=== PATIENT | male | born 1935 | race Asian ===

== ENCOUNTER 2017-04-19 18:08 | Emergency (ER) | payer MEDICARE, OTHER ==
[2017-04-19 18:27] VITALS: BP 143/82
--- NOTE | 2017-04-19 19:09 | UC ---
Minor Trauma HPI - HPI Summary HPI Summary: Pt tripped over concrete barrier in parking garage, fell onto L side. Has abrasions to bilat palms, L face; also has pain in L shoulder with palpation and movement. No prior surgery to L shoulder. Denies hitting head, neck pain, dental/jaw pain. - History of Current Complaint Hx Obtained From: Patient Onset/Duration: Sudden Onset Onset Of Pain: Immediate Severity Initially: Moderate Severity Currently: Mild Mechanism Of Injury: Fall From A Standing Position Aggravating Factor(s): Movement Alleviating Factor(s): Nothing <Monet Alcocer - Last Filed: 04/19/17 18:58> <Leydi Mckinley - Last Filed: 04/19/17 21:28> - History of Current Complaint Chief Complaint: UCTrauma Stated Complaint: FELL-HAND AND SHOULDER Time Seen by Provider: 04/19/17 18:51 - Allergies/Home Medications Allergies/Adverse Reactions: Allergies Allergy/AdvReac Type Severity Reaction Status Date / Time No Known Allergies Allergy Verified 04/19/17 18:27 PMH/Surg Hx/FS Hx/Imm Hx Other GI/ History: hx hepatitis - Surgical History Surgical History: Yes Surgery Procedure, Year, and Place: Eye Surgery - Family History Known Family History: Positive: None - Social History Occupation: Retired Lives: With Family Alcohol Use: None Substance Use Type: None Smoking Status (MU): Never Smoked Tobacco - Immunization History Most Recent Tetanus Shot: not sure Vaccination Up to Date: Yes <Monet Alcocer - Last Filed: 04/19/17 18:58> Review of Systems Constitutional: Negative Skin: Other - abrasions Eyes: Negative ENT: Negative Respiratory: Negative Cardiovascular: Negative Gastrointestinal: Negative Genitourinary: Negative Motor: Negative Neurovascular: Negative Musculoskeletal: Arthralgia - L shoulder Neurological: Negative Psychological: Negative Is Patient Immunocompromised?: No All Other Systems Reviewed And Are Negative: Yes <Monet Alcocer - Last Filed: 04/19/17 18:58> Physical Exam Triage Information Reviewed: Yes Appearance: Well-Appearing, Well-Nourished, Pain Distress - with L shoulder movement Vital Signs: Initial Vital Signs Temp 97.9 F 04/19/17 18:23 Pulse 83 04/19/17 18:23 Resp 18 04/19/17 18:23 BP 143/82 04/19/17 18:23 Pulse Ox 98 04/19/17 18:23 Vital Signs Reviewed: Yes Eye Exam: Normal Eyes: Positive: Conjunctiva Clear ENT Exam: Normal ENT: Positive: Normal ENT inspection, Hearing grossly normal, Pharynx normal, TMs normal Dental Exam: Normal Dental: Negative: Percussion Tenderness @, Gross Decay/Caries @, Dental Fracture @ Neck exam: Normal, Other - No bony tenderness Neck: Positive: Supple, Nontender, No Lymphadenopathy Respiratory Exam: Normal Respiratory: Positive: Chest non-tender, Lungs clear, Normal breath sounds, No respiratory distress, No accessory muscle use Cardiovascular Exam: Normal Cardiovascular: Positive: RRR, No Murmur Musculoskeletal: Positive: ROM Limited @ - L shoulder, full passive ROM, restricted AROM Neurological Exam: Normal Neurological: Positive: Alert Psychological Exam: Normal Skin Exam: Other - abrasions to palms, abrasion to face <Monet Alcocer - Last Filed: 04/19/17 18:58> Vital Signs: Initial Vital Signs Temp 97.9 F 04/19/17 18:23 Pulse 83 04/19/17 18:23 Resp 18 04/19/17 18:23 BP 143/82 04/19/17 18:23 Pulse Ox 98 04/19/17 18:23 <Leydi Mckinley - Last Filed: 04/19/17 21:28> Diagnostics - Radiology No standard instances Xray Interpretation: No Acute Changes Radiology Interpretation Completed By: Radiologist <Monet Alcocer - Last Filed: 04/19/17 18:58> Minor Trauma Course/Dx - Differential Dx/Diagnosis Provider Diagnoses: Multiple abrasions. L shoulder contusion. L shoulder injury <Monet Alcocer - Last Filed: 04/19/17 18:58> Discharge <Monet Alcocer - Last Filed: 04/19/17 18:58> <Leydi Mckinley - Last Filed: 04/19/17 21:28> - Discharge Plan Condition: Stable Disposition: HOME Patient Education Materials: Shoulder Sprain (ED), Contusion in Adults (ED) Referrals: Eddie Elizabeth MD [Primary Care Provider] - 1 Week Additional Instructions: Use vaseline or antibiotic ointment on your face and hands for 2-3 days; you can stop dressing your hand wounds when they are no longer tender to the touch. Most shoulder injuries are very painful at first, and sometimes the only way we know whether there is a more serious injury is to recheck you after pain has had a chance to come down. Wear the sling only until you are comfortable to go without it, and plan to see your primary care provider in about a week to see if you need follow-up x-rays or an orthopedist. You can use ice and acetaminophen or ibuprofen as needed for pain, and try to gently get the arm through a full range of motion 3-4 times per day. Attestation Statement User Type: Provider - I was available for consult. This patient was seen by the [facility]. The patient was not presented to, seen by, or examined by me. -Urmila <Leydi Mckinley - Last Filed: 04/19/17 21:28>
--- NOTE | 2017-04-19 19:51 | RAD ---
Indication: Left shoulder pain. 4 views of left shoulder demonstrates no fracture. No other bone or joint abnormality is identified. IMPRESSION: No fracture of the left shoulder is noted.
== END 2017-04-19 20:08 | disposition home or self-care (01) ==
LOC: UCEAST 18:08
DX: T14.8XXA Other injury of unspecified body region, initial encounter (principal); S60.222A Contusion of left hand, initial encounter; S60.221A Contusion of right hand, initial encounter; S49.92XA Unspecified injury of left shoulder and upper arm, initial encounter; W18.30XA Fall on same level, unspecified, initial encounter
CPT/HCPCS: 99213; G0463

== ENCOUNTER 2018-02-07 15:35 | Emergency (ER) | payer MEDICARE, OTHER ==
[2018-02-07 16:04] VITALS: BP 111/73
--- NOTE | 2018-02-07 16:38 | RAD ---
Indication: Proximal humerus RIGHT shoulder pain post fall 2 days ago. Comparison: No relevant prior exams available on the [facility] for comparison. Technique: Internal rotation AP, external rotation Grashey, scapular Y, axillary views RIGHT shoulder REPORT AND IMPRESSION: #. Normal acromioclavicular and glenohumeral joint alignment. #. Negative for fracture. #. Small burden of calcific tendinopathy at the level of the supraspinatus tendon insertion at the greater tuberosity. #. Unremarkable soft tissue contours.
--- NOTE | 2018-02-07 16:51 | UC ---
Shoulder Pain HPI - HPI Summary HPI Summary: 82 y/o male presents to the urgent care c/o RT shoulder pain s/p falling while going down the stairs in the [facility] on 02/05/2018. Pt reports he slip on the last step. He also fractured one of his frontal teeth. He just came from the dentist who fixed his tooth. Pain w/ movement is sharp 6/10 and 0/0 at rest. It is difficult for him to raise his arm. Pt denies numbness and tingling sensation , fever, SOB, calf pain, chest pain, abdominal pain,N/V/D. He ahs taking Advil 2 tabs PO to alleviate symptoms. - History of Current Complaint Chief Complaint: UCUpperExtremity Stated Complaint: SHOULDER INJURY Time Seen by Provider: 02/07/18 16:19 Hx Obtained From: Patient Onset/Duration: Sudden Onset, Lasting Days - 2 days, Still Present, Worse Since - today Timing: Constant Severity Initially: Moderate Severity Currently: Moderate Location Of Pain: Is Discrete @ - RT shoulder unable to raise arm Pain Intensity: 6 - movement and 0/10 at rest Pain Scale Used: 0-10 Numeric Character: Dull Aggravating Factor(s): Movement, Lifting, Abduction Alleviating Factor(s): Rest, Ice, OTC Meds - Advil 2 tabs PO Associated Signs And Symptoms: Positive: Negative. Negative: Redness, Bruising , Numbness/Tingling Related History: Dominant Hand Right - Risk Factors Non-Orthopedic Risk Factor: Negative DVT Risk Factors: Negative Septic Arthritis Risk Factor: Negative - Allergies/Home Medications Allergies/Adverse Reactions: Allergies Allergy/AdvReac Type Severity Reaction Status Date / Time No Known Allergies Allergy Verified 02/07/18 16:05 Home Medications: Home Medications metFORMIN* [Glucophage 500 MG TAB *] 1 tab PO BID 02/07/18 [History Confirmed ] PMH/Surg Hx/FS Hx/Imm Hx Previously Healthy: Yes Endocrine History: Diabetes GI/ History: Gastroesophageal Reflux Psychological History: Depression - Surgical History Surgical History: Yes Surgery Procedure, Year, and Place: Eye Surgery - Family History Known Family History: Positive: Diabetes - Social History Occupation: Retired Lives: With Family Alcohol Use: None Substance Use Type: None Smoking Status (MU): Never Smoked Tobacco - Immunization History Most Recent Tetanus Shot: not sure Vaccination Up to Date: Yes Review of Systems Constitutional: Negative Skin: Negative Eyes: Negative ENT: Negative Respiratory: Negative Cardiovascular: Negative Gastrointestinal: Negative Genitourinary: Negative Motor: Negative Neurovascular: Negative Musculoskeletal: Decreased ROM - RT shoulder, Other: - RT shoulder pain s/p fall Neurological: Negative Psychological: Negative Is Patient Immunocompromised?: No All Other Systems Reviewed And Are Negative: Yes Physical Exam - Summary Physical Exam Summary: Vital Signs Reviewed: Yes General: well developed, well nourished old male sitting in the examining table w/o any apparent distress, Eyes: Positive: Conjunctiva Clear - PERRLA, EOMI, fundi grossly normal ENT: Positive: Normal ENT inspection, Hearing grossly normal, Pharynx normal, TMs normal Neck: Positive: Supple, Nontender, No Lymphadenopathy Respiratory: Positive: Chest non-tender, Lungs clear, Normal breath sounds, No respiratory distress Cardiovascular: Positive: RRR, No Murmur, Pulses Normal, Brisk Capillary Refill Abdomen Description: Positive: Nontender, No Organomegaly, Soft. Negative: CVA Tenderness (R), CVA Tenderness (L) Bowel Sounds: Positive: Present Musculoskeletal: Positive: Strength Intact, RT shoulder: The R shoulder is without obvious asymmetry or deformity when compared to the L shoulder. No surface trauma, ecchymosis, crepitus. No bony deformity or prominence of humeral head. No erythema, warmth. No tender to palpation over the clavicle, scapula. Mild tenderness over Acromioclavicular joint and humeral head with mild swelling, NT to palpation of the bicipital groove . NT to palpation of the muscles of the sternocleidomastoid, pectoralis, tenderness over biceps/triceps, deltoid, trapezius, . Limited ROM due to pain. "empty can and drop arm test unable to perform due to pain. No axillary tenderness or lymphadenopathy. Normal sensation over the deltoid and fingers. Distal motor and neurovascular status is intact. Neurological Exam: Normal Psychological Exam: Normal Skin Exam: Normal Triage Information Reviewed: Yes Vital Signs: Initial Vital Signs Temp 98.4 F 02/07/18 16:01 Pulse 86 02/07/18 16:01 Resp 18 02/07/18 16:01 BP 111/73 02/07/18 16:01 Pulse Ox 98 02/07/18 16:01 Shoulder Course/Dx - Course Course Of Treatment: 82 y/o male presents to the urgent care c/o RT shoulder pain s/p falling while going down the stairs in the [facility] on 02/05/2018. Pt reports he slip on the last step. He also fractured one of his frontal teeth. He just came from the dentist who fixed his tooth. Pain w/ movement is sharp 6/ 10 and 0/0 at rest. It is difficult for him to raise his arm. Pt denies numbness and tingling sensation, fever, SOB, calf pain, chest pain, abdominal pain,N/V/D. He ahs taking Advil 2 tabs PO to alleviate symptoms. Hx obtained. RT shoulder X-ray ordered: Impression:RT shoulder X-ray ordered: Impression: Cacific tendinopathy over the supraspinator tendon. No acute osseous injury observed. Pt advised to continue taking Advil PO forpain. Shoulder immobilized w /a shoulder sling for 2-3 days. Advised to f/u with PT referral for further evaluation and Orthopedic referral with Dr Mracus if not improvement of symptoms. Pt understood and agreed w/ plan of care and left clinic ambulating and hemodynamically stable. - Differential Dx/Diagnosis Differential Diagnosis/HQI/PQRI: Arthritis, Bursitis, Dislocation, Fracture ( Closed), Rotator Cuff Injury, Sprain, Strain, Tendonitis Provider Diagnoses: 1- Acute Rt shoulder pain s/p fall. 2-RT shoulder Calcific tendinopathy Discharge - Sign-Out/Discharge Documenting (check all that apply): Patient Departure - D/C home - Discharge Plan Condition: Stable Disposition: HOME Patient Education Materials: Calcific Tendinitis (ED) Referrals: Eddie Elizabeth MD [Primary Care Provider] - 1 Week Fidelia Marcus MD [Medical Doctor] - 1 Week Additional Instructions: 1-Please continue taking Advil PO or Tylenol PO after meals q6-8hrs as directed to alleviate pain and swelling. 2-Please apply ice, keep your shoulder immobilized with the shoulder sling for 3 -4 days and then resume movement slowly 3- Please f/u with Orthopedic DR Marcus or your PCP in 1 week is not improvement of symptoms for further evaluation and treatment. 4- F/u w/ Physical therapy referral for further evaluation and treatment. - Billing Disposition and Condition Condition: STABLE Disposition: Home
== END 2018-02-07 17:06 | disposition home or self-care (01) ==
LOC: UCEAST 15:35
DX: M25.511 Pain in right shoulder (principal); M75.31 Calcific tendinitis of right shoulder; E11.9 Type 2 diabetes mellitus without complications; Z79.84 Long term (current) use of oral hypoglycemic drugs; Z83.3 Family history of diabetes mellitus
CPT/HCPCS: 99212; G0463

== ENCOUNTER 2018-04-11 09:18 | Emergency (ER) | payer MEDICARE, OTHER ==
[2018-04-11 09:35] VITALS: BP 134/71
--- NOTE | 2018-04-11 09:42 | UC ---
Upper Extremity HPI - HPI Summary HPI Summary: 82-year-old male comes to clinic today with a chief complaint of right upper humerus soft tissue swelling and pain. This started 3 days ago when he was lifting luggage. He felt sudden onset of pain and subsequently some swelling in the proximal right bicep area. He still able to move his arm and shoulder but with pain and some decreased range of motion. Movement makes the pain worse rest makes it better. Pain is worse is about a 4 out of 10. The pain is 0 out of 10 if he does not use his arm. He did try some ibuprofen which helped some. Patient does not feel like she is weaker and there is no numbness. There is some decreased range of motion secondary to pain. - History of Current Complaint Chief Complaint: UCUpperExtremity Stated Complaint: ARM AND SHOULDER INJURY Time Seen by Provider: 04/11/18 09:29 Pain Intensity: 2 - Allergies/Home Medications Allergies/Adverse Reactions: Allergies Allergy/AdvReac Type Severity Reaction Status Date / Time No Known Allergies Allergy Verified 04/11/18 09:35 Home Medications: Home Medications Multivitamin [Multivitamins] 1 cap PO DAILY 04/11/18 [History Confirmed 04/11/18 ] Hutchinson-3 Fatty Acids/Fish Oil [Fish Oil 1,000 mg Capsule] 1 tab PO DAILY [History Confirmed 04/11/18] Vit C/E/Zn/Coppr/Lutein/Zeaxan [Preservision Areds 2 Softgel] 1 tab PO DAILY 02/19 [History Confirmed 04/11/18] PMH/Surg Hx/FS Hx/Imm Hx Endocrine History: Diabetes - Surgical History Surgical History: Yes Surgery Procedure, Year, and Place: Eye Surgery - Family History Known Family History: Positive: None, Diabetes - Social History Alcohol Use: None Substance Use Type: None Smoking Status (MU): Never Smoked Tobacco - Immunization History Most Recent Tetanus Shot: not sure Vaccination Up to Date: Yes Review of Systems Constitutional: Negative Skin: Negative Eyes: Negative ENT: Negative Respiratory: Negative Cardiovascular: Negative Gastrointestinal: Negative Motor: Other - see hpi Neurovascular: Negative Musculoskeletal: Other: - see hpi Neurological: Negative Psychological: Negative Is Patient Immunocompromised?: No All Other Systems Reviewed And Are Negative: Yes Physical Exam Triage Information Reviewed: Yes Appearance: Well-Appearing, No Pain Distress, Well-Nourished Vital Signs: Initial Vital Signs Temp 98.8 F 04/11/18 09:24 Pulse 90 04/11/18 09:24 Resp 18 04/11/18 09:24 BP 134/71 04/11/18 09:24 Pulse Ox 96 04/11/18 09:24 Vital Signs Reviewed: Yes Eye Exam: Normal Eyes: Positive: Conjunctiva Clear Neck exam: Normal Neck: Positive: Supple Respiratory Exam: Normal Respiratory: Positive: No respiratory distress Musculoskeletal: Positive: Other: - There is swelling in the lateral aspect of the right biceps muscle. Patient's fingers wrists and elbow have full range of motion. There is no decreased strength found on exam. The shoulder joint itself is minimally tender. The distal and proximal biceps are nontender to palpation. Shoulder extension is 90 bilaterally abduction is 75 bilaterally internal rotation on the right is L2 to internal rotation on the left is T10. Neurological: Positive: Alert, Muscle Tone Normal Psychological Exam: Normal Psychological: Positive: Age Appropriate Behavior Skin Exam: Normal Upper Extremity Course/Dx - Course Course Of Treatment: Order Information: SHOULDER RIGHT 2+ VWS. Accession Number : [id number]. CPT: 23941. HISTORY: pain soft tissue swelling proximal humerus. COMPARISONS: February 17, 2018. VIEWS: 6 , Frontal internal rotation, external rotation, outlet, and axillary views of the. right shoulder with frontal internal and extra rotation views of the right humerus. FINDINGS: BONE DENSITY: Normal. BONES: There is no displaced fracture. JOINTS: There is no arthropathy. ALIGNMENT: There is no dislocation. SOFT TISSUES: There is soft tissue calcification along the greater tuberosity. OTHER FINDINGS: None. IMPRESSION: SOFT TISSUE CALCIFICATION SUGGESTIVE OF A CALCIFIC TENDINOPATHY. NO ACUTE OSSEOUS INJURY. IF SYMPTOMS PERSIST, RECOMMEND REPEAT IMAGING. . <Electronically signed by Robin Guaman MD in [place]> 04/11/18 1004. Order Information: HUMERUS RIGHT. Accession Number: [id number]. CPT: 73560. HISTORY: pain soft tissue swelling proximal humerus. COMPARISONS: February 17, 2018. VIEWS: 6 , Frontal internal rotation, external rotation, outlet, and axillary views of the. right shoulder with frontal internal and extra rotation views of the right humerus. FINDINGS: BONE DENSITY: Normal. BONES: There is no displaced fracture. JOINTS : There is no arthropathy. ALIGNMENT: There is no dislocation. SOFT TISSUES: There is soft tissue calcification along the greater tuberosity. OTHER FINDINGS : None. IMPRESSION: SOFT TISSUE CALCIFICATION SUGGESTIVE OF A CALCIFIC TENDINOPATHY. NO ACUTE OSSEOUS INJURY. IF SYMPTOMS PERSIST, RECOMMEND REPEAT IMAGING. . < Electronically signed by Robin Guaman MD in [place]> 04/11/18 1004. I discussed the x-ray results with the patient. I believe the patient has a biceps injury. Patient does have full range of motion so the biceps injury is not complete. My plan is to have him follow-up with orthopedics for further evaluation to determine appropriate treatment. - Differential Dx/Diagnosis Provider Diagnoses: RIGHT BICEP INJURY Discharge - Sign-Out/Discharge Documenting (check all that apply): Patient Departure All imaging exams completed and their final reports reviewed: Yes - Discharge Plan Condition: Stable Disposition: HOME Patient Education Materials: Biceps Tenodesis (DC), Repairs of the Biceps and Triceps Tendons (DC) Referrals: Eddie Elizabeth MD [Primary Care Provider] - Mookie Ashby MD [Medical Doctor] - Additional Instructions: FOLLOW UP WITH DR ASHBY, ORTHOPEDICS FOR FURTHER EVALUATION AND TREATMENT OF YOUR RIGHT ARM INJURY. GET RECHECKED FOR ANY WORSENING OF YOUR CONDITION OR QUESTIONS OR CONCERNS. - Billing Disposition and Condition Condition: STABLE Disposition: Home
--- NOTE | 2018-04-11 10:08 | RAD ---
HISTORY: pain soft tissue swelling proximal humerus COMPARISONS: February 17, 2018 VIEWS: 6 , Frontal internal rotation, external rotation, outlet, and axillary views of the right shoulder with frontal internal and extra rotation views of the right humerus. FINDINGS: BONE DENSITY: Normal. BONES: There is no displaced fracture. JOINTS: There is no arthropathy. ALIGNMENT: There is no dislocation. SOFT TISSUES: There is soft tissue calcification along the greater tuberosity. OTHER FINDINGS: None. IMPRESSION: SOFT TISSUE CALCIFICATION SUGGESTIVE OF A CALCIFIC TENDINOPATHY. NO ACUTE OSSEOUS INJURY. IF SYMPTOMS PERSIST, RECOMMEND REPEAT IMAGING.
== END 2018-04-11 10:42 | disposition home or self-care (01) ==
LOC: UCEAST 09:18
DX: S49.91XA Unspecified injury of right shoulder and upper arm, initial encounter (principal); E11.9 Type 2 diabetes mellitus without complications; X50.9XXA Other and unspecified overexertion or strenuous movements or postures, initial encounter; Y93.89 Activity, other specified; Y92.9 Unspecified place or not applicable
CPT/HCPCS: 99211; G0463

== ENCOUNTER 2018-09-21 17:31 | Emergency (ER) | payer MEDICARE, OTHER ==
--- NOTE | 2018-09-21 20:15 | UC ---
Respiratory Complaint HPI - HPI Summary HPI Summary: 83 yo male p/w cough f/c/bodyaches x 4 days, was also sick 1 day prior to his sx starting, but pt's cough is more "wet" cannot get it out and thinks nit has settled in his chest - History of Current Complaint Chief Complaint: UCRespiratory Stated Complaint: COUGH Time Seen by Provider: 09/21/18 19:34 Hx Obtained From: Patient, Family/Computer Application Developer Onset/Duration: Lasting Days Severity Initially: Moderate Severity Currently: Moderate Pain Intensity: 0 - Allergies/Home Medications Allergies/Adverse Reactions: Allergies Allergy/AdvReac Type Severity Reaction Status Date / Time No Known Allergies Allergy Verified 09/21/18 18:06 Home Medications: Home Medications Calcium Carb/Vitamin D3/Vit K1 [Calcium + D Soft Chewable Tab] 1 chw PO DAILY [History Confirmed 09/21/18] Glucosamine/D3/Boswellia Angelika [Osteo Bi-Flex Tablet] 1 each PO DAILY 09/21/18 [ History Confirmed 09/21/18] Tamsulosin CAP* [Flomax CAP*] 0.4 mg PO BEDTIME 09/21/18 [History Confirmed ] PMH/Surg Hx/FS Hx/Imm Hx - Surgical History Surgical History: Yes Surgery Procedure, Year, and Place: Eye Surgery MACULAR HOLE SURGERY 1997. VASECTOMY - Family History Known Family History: Positive: None, Diabetes - Social History Alcohol Use: None Substance Use Type: None Smoking Status (MU): Never Smoked Tobacco - Immunization History Most Recent Tetanus Shot: not sure Vaccination Up to Date: Yes Review of Systems All Other Systems Reviewed And Are Negative: Yes - Comments Additional Review of Systems Comments: Constitutional: Negative Skin: Negative Eyes: Negative ENT: Negative Cardiovascular: Negative Respiratory:wet cough, diffuculty expectorating Gastrointestinal: Negative Genitourinary: Negative Musculoskeletal: Negative Neurological: Negative Psychological: Normal All Other Systems Reviewed And Are Negative: Yes Physical Exam - Summary Physical Exam Summary: Vital Signs Reviewed: Yes Appearance: Positive: No Pain Distress Skin: Positive: Warm Head/Face: Positive: Normal Head/Face Inspection Eyes: Positive: Normal ENT: Positive: Normal ENT inspection Neck: Positive: Supple Respiratory/Lung Sounds: Positive: DIFFUSE Rales, Rhonchi, Wheezes Cardiovascular: Positive: Normal, RRR, S1, S2 Abdomen Description: Positive: Nontender Musculoskeletal: Positive: Normal Neurological: Positive: Normal, CN Intact II-III Psychiatric: Positive: Normal, Affect/Mood Appropriate Triage Information Reviewed: Yes Vital Signs: Initial Vital Signs Temp 36.7 C 09/21/18 18:03 Pulse 78 09/21/18 18:03 Resp 16 09/21/18 18:03 BP 156/94 09/21/18 18:03 Pulse Ox 96 09/21/18 18:03 Respiratory Course/Dx - Course Course Of Treatment: pt has clinical PNA - Differential Dx/Diagnosis Provider Diagnosis: PNA (pneumonia) Discharge - Sign-Out/Discharge Documenting (check all that apply): Patient Departure All imaging exams completed and their final reports reviewed: No Studies - Discharge Plan Condition: Stable Disposition: HOME Prescriptions: Cefuroxime 500 MG(NF) 500 mg PO BID 7 Days #14 tab Patient Education Materials: Pneumonia (ED) Referrals: Eddie Elizabeth MD [Primary Care Provider] - - Billing Disposition and Condition Condition: STABLE Disposition: Home
[2018-09-21 20:24] VITALS: BP 148/82
== END 2018-09-21 20:25 | disposition home or self-care (01) ==
LOC: UCEAST 17:31
DX: J18.9 Pneumonia, unspecified organism (principal)
CPT/HCPCS: 99212; G0463

== ENCOUNTER 2023-11-30 19:07 | Observation (INO) ==
[2023-11-30 20:30] LABS: ABS Lymphocytes 0.5 10^3/uL (1.0-4.8); ABS Monocytes 0.6 10^3/uL (0.0-1.1); ABS Neutrophils 8.1 10^3/uL (1.5-7.6); ABS Nucleated RBC 0.01 10^3/ul; Eosinophil % 0.2 %; Hematocrit 38.7 % (38-53); Hemoglobin 13.1 g/dL (13.2-16.3); Lymphocyte % 5.2 %; Mean Corpuscular Hemoglobin 33.8 pg (27-33); Mean Corpuscular Volume 99.5 fL (80-97); Mean Platelet Volume 7.5 fL (7.5-11.2); Nucleated Red Blood Cells % 0.1 %/100WBC (0.0-0.8); Platelet Count 159 10^3/uL (150-450); Red Blood Count 3.89 10^6/uL (4.06-5.63); Red Cell Distribution Width 14.1 % (12-17); White Blood Count 9.3 10^3/uL (3.6-10.2)
[2023-11-30 21:13] LABS: Albumin/Globulin Ratio 1.7 (1-3); Calcium 8.4 mg/dL (8.6-10.3); Creatinine, Serum 0.74 mg/dL (0.67-1.17); Globulin 2.3 g/dL (2-4); Potassium 4.3 mmol/L (3.5-5.0); Total Bilirubin 0.7 mg/dL (0.2-1.0); Total Protein 6.3 g/dL (6.4-8.9); eGFR CKD-EPI 87.7 (>60)
[2023-11-30] MEDS: Lactated Ringers 1000 ml BAG 1,000 ML IV ONE (21:26)
[2023-11-30 21:45] LABS: Urine Appearance Turbid; Urine Bilirubin Negative (Negative); Urine Blood Negative (Negative); Urine Color Yellow; Urine Glucose 2+ (>=150 mg/dL) (Negative); Urine Ketones Negative (Negative); Urine Nitrite Negative (Negative); Urine Protein Negative (Negative); Urine Specific Gravity 1.009 (1.002-1.030); Urine Urobilinogen Negative (Negative); Urine pH 7.5 (5.0-8.0)
[2023-11-30 21:49] LABS: High Sensitivity Troponin 1 Hr 15 pg/mL (<20)
[2023-11-30] MEDS: Iodixanol (CONTRAST) 320 MG/ML 100 ML SDV IV ONE (23:10)
[2023-12-01] MEDS: cefTRIAXone 1 gm/50 mL D5W 1 GM/50 ML BAG IV ONE (00:48)
[2023-12-01] MEDS ORDERED: Senna TAB 8.6 mg TAB PO PRN (01:01)
[2023-12-01] MEDS ORDERED: Polyethylene Glycol 3350 17 GM PACKET PO PRN (01:01)
[2023-12-01] MEDS: Azithromycin 500 mg/250 ml NS 500 MG/250 ML BAG IVPB ONE (01:23)
[2023-12-01 01:39] LABS: Osmolality Serum 265 mOsm/kg (275-295)
[2023-12-01 02:18] LABS: Urine Osmo 358 mOsm/kg (150-1150)
[2023-12-01] MEDS: Senna TAB 8.6 mg TAB PO SCH (04:01)
[2023-12-01] MEDS: Carbidopa/Levodop 25/100 MG TAB PO SCH (05:00)
[2023-12-01] MEDS: Polyethylene Glycol 3350 17 GM PACKET PO SCH (05:00)
[2023-12-01 05:12] LABS: ABS Lymphocytes 0.7 10^3/uL (1.0-4.8); ABS Monocytes 0.6 10^3/uL (0.0-1.1); ABS Neutrophils 6.5 10^3/uL (1.5-7.6); Eosinophil % 0.1 %; Hematocrit 37.8 % (38-53); Hemoglobin 13.4 g/dL (13.2-16.3); Lymphocyte % 8.4 %; Mean Corpuscular Hemoglobin 35.4 pg (27-33); Mean Corpuscular Hgb Conc 35.4 g/dL (31-36); Mean Corpuscular Volume 99.9 fL (80-97); Mean Platelet Volume 7.2 fL (7.5-11.2); Platelet Count 149 10^3/uL (150-450); Red Blood Count 3.78 10^6/uL (4.06-5.63); Red Cell Distribution Width 13.9 % (12-17); White Blood Count 7.8 10^3/uL (3.6-10.2)
[2023-12-01 06:05] LABS: Calcium 8.2 mg/dL (8.6-10.3); Creatinine, Serum 0.72 mg/dL (0.67-1.17); Potassium 4.3 mmol/L (3.5-5.0); eGFR CKD-EPI 88.4 (>60)
[2023-12-01] MEDS: Magnesium Hydroxide LIQ 30 ML UDC PO SCH (10:34)
[2023-12-01] MEDS: Sodium Phosphate ADULT ENEMA 133 ML BTL PR PRN (11:38)
[2023-12-01] MEDS: NS 0.9% 1000 ml BAG 1,000 ML IV SCH (11:38)
[2023-12-01 12:19] LABS: C Reactive Protein 4.65 mg/L (<8.01)
[2023-12-01 17:04] LABS: Calcium 7.9 mg/dL (8.6-10.3); Creatinine, Serum 0.8 mg/dL (0.67-1.17); Potassium 4.3 mmol/L (3.5-5.0); eGFR CKD-EPI 85.7 (>60)
[2023-12-02 05:51] LABS: Hematocrit 38.1 % (38-53); Hemoglobin 13.4 g/dL (13.2-16.3); Mean Corpuscular Hemoglobin 35.3 pg (27-33); Mean Corpuscular Hgb Conc 35.2 g/dL (31-36); Mean Corpuscular Volume 100.3 fL (80-97); Mean Platelet Volume 7.1 fL (7.5-11.2); Platelet Count 149 10^3/uL (150-450); Red Cell Distribution Width 14.3 % (12-17); White Blood Count 5.9 10^3/uL (3.6-10.2)
[2023-12-02 06:11] LABS: Anion Gap 6 mmol/L (2-16); Blood Urea Nitrogen 15 mg/dL (6-24); CO2 Carbon Dioxide 27 mmol/L (22-32); Calcium 7.9 mg/dL (8.6-10.3); Chloride 97 mmol/L (101-111); Creatinine, Serum 0.83 mg/dL (0.67-1.17); Glucose 115 mg/dL (70-100); Magnesium 2.2 mg/dL (1.9-2.7); Potassium 4.1 mmol/L (3.5-5.0); Sodium 130 mmol/L (135-145); eGFR CKD-EPI 84.7 (>60)
[2023-12-02 08:23] LABS: Folate > 20.00 ng/mL (5.90-24.80)
[2023-12-02 08:24] LABS: Vitamin B12 1102 pg/mL (180-914)
[2023-12-02] MEDS: Polyethylene Glycol 3350 17 GM PACKET PO SCH (08:56)
[2023-12-03 05:50] VITALS: BP 149/85
[2023-12-03 06:40] LABS: Calcium 8.1 mg/dL (8.6-10.3); Creatinine, Serum 0.85 mg/dL (0.67-1.17); Potassium 4.3 mmol/L (3.5-5.0); eGFR CKD-EPI 84.1 (>60)
== END 2023-12-03 09:34 | disposition home or self-care (01) ==
LOC: ED 19:07 → EDHOLD 19:07 → SUATTDRO 12-01 01:01 → EDHOLD 12-01 02:35 → MEDTELE 12-01 03:18
PROVIDERS: ADMIT Internal Medicine; ATTEND Internal Medicine